=== PATIENT | female | born 1970 | race Hispanic/Latino ===

== ENCOUNTER 2025-09-16 06:00 | Day surgery (SDC) | payer OTHER ==
[~2025-09-16] VITALS: Ht 154.9 cm; Wt 78.5 kg
[2025-09-16] VITALS (11 sets, daily range): BP systolic 93–131; BP diastolic 51–88; PULSE 68–86; RESP 14–18; TEMP 97.3–97.9
[2025-09-16] MEDS ORDERED: LOSA25TA41 PO (06:31)
[2025-09-16] MEDS: 0.9%NACL 1000ML 1,000 ML IV ONE (06:34)
[2025-09-16] MEDS ORDERED: LIDOCAINE PF 100MG/5ML (2%) SYRINGE 5ML ONE (10:38)
== END 2025-09-16 12:00 | disposition home or self-care (01) ==
LOC: DAH 06:00 → ENDO 06:00
PROVIDERS: ATTEND Surgery
DX: R14.0 Abdominal distension (gaseous) (principal); D12.3 Benign neoplasm of transverse colon; I10 Essential (primary) hypertension; J84.10 Pulmonary fibrosis, unspecified; Z98.891 History of uterine scar from previous surgery
CPT/HCPCS: 45380; J7030; J2003; J2704; J3490; A4620; A4215 ×2; A4223; A4222; A4221; A4663; A4606